=== PATIENT | female | born 1935 | race Caucasian/White ===

== ENCOUNTER 2020-12-15 11:00 | Emergency (ER) | payer MEDICARE, OTHER ==
[~2020-12-15 11:00] MED LIST: ASPIRIN EC325 MG PO; LIPITOR20 MG PO; LOPRESSOR25 MG PO; PANTOPRAZOLE SO40 MG PO; ZESTRIL5 MG PO
[2020-12-15 12:44] LABS: ALBUMIN 3.6 g/dL (3.4-5.0); BILIRUBIN - TOTAL 4.2 mg/dL (0.2-1.0); BUN/CREAT RATIO (CALC) 14.1 RATIO; CREATININE 1.42 mg/dL (0.51-0.95); GLOBULIN (CALCULATION) 4.3 g/dL; POTASSIUM 3.6 mmol/L (3.5-5.1); TOTAL PROTEIN 7.9 g/dL (6.4-8.2)
[2020-12-15 14:09] LABS: BASOPHIL 0.3 % (0-2); EOSINOPHIL 0.1 % (0-7); HGB 12.3 g/dl (12.5-16.0); LYMPHOCYTE 4.9 % (15-48); MCH 29.5 pg (25.0-31.0); MCHC 31.5 g/dL (32.0-36.0); MCV 93.5 fL (78.0-100.0); MONOCYTE 6.4 % (0-12); MPV 11.8 fL (6.0-9.5); NEUTROPHIL 85.7 % (41-80); NRBC 0; PLT 176 K/uL (150-400); RBC 4.17 M/uL (4.20-5.40); RDW 13.8 % (11.5-14.0)
[2020-12-15 14:14] LABS: WBC 39.2 K/uL (4.0-10.5)
[2020-12-15 14:54] LABS: LACTIC ACID 2.7 mmol/L (0.4-1.9)
[2020-12-15 15:24] LABS: BILIRUBIN 1+ mg/dL (NEGATIVE); BLOOD 1+ Ery/uL (NEGATIVE); CLARITY CLEAR (CLEAR); COLOR YELLOW (YELLOW); GLUCOSE (U) NORMAL (NORMAL); LEUKOCYTES NEGATIVE Leu/uL (NEGATIVE); NITRITE NEGATIVE (NEGATIVE); PROTEIN TRACE (LOW) mg/dL (NEGATIVE); SPECIFIC GRAVITY <=1.005 (1.001-1.030); UROBILINOGEN 0.2 mg/dL (0.2-1.0); pH 7.5 (5.0-9.0)
[2020-12-15 16:07] LABS: BACTERIA 2+
[2020-12-16 05:10] LABS: HBSAG SCREEN Negative (Negative); HEP A AB, IGM Negative (Negative); HEP B CORE AB, IGM Negative (Negative); HEP C VIRUS AB <0.1 (0.0-0.9)
== END 2020-12-15 19:06 | disposition other institution (70) ==
LOC: FER 11:00
PROVIDERS: Internal Medicine
DX: A41.9 Sepsis, unspecified organism (principal); K80.42 Calculus of bile duct with acute cholecystitis without obstruction; I10 Essential (primary) hypertension; Z20.822 Contact with and (suspected) exposure to COVID-19
CPT/HCPCS: 36415; 71045; 76705; 80053; 80074; 81001; 83605; 84145; 84443; 84484; 85025; 87040; 93005; J2543; J3370; J7030; J7050; U0002